=== PATIENT | female | born 1955 | race Hispanic/Latino ===

== ENCOUNTER 2017-04-07 12:43 | Outpatient (CLI) | payer OTHER ==
[2017-04-07 14:09] LABS: Blood Urea Nitrogen 20 mg/dL (7-17)
[2017-04-07] MEDS ORDERED: NACL ONE (14:36)
--- NOTE | 2017-04-07 15:16 | Cat Scan Report ---
CTA CHEST INDICATION: Shortness of breath. COMPARISON: None similar at this institution. FINDINGS: Chest CTA performed following intravenous administration of 100 cc of Omnipaque 350. Rotational MIP's also obtained. Normal heart size. No effusions. No aortic aneurysm, dissection or suspicious pulmonary arterial filling defects. Aortic and coronary atherosclerotic calcifications. No size significant adenopathy. Normal airway. Unremarkable thyroid. Clear lungs. Nonspecific distal esophageal wall prominence/thickening, not excluded for gastroesophageal reflux and/or hiatal hernia, amongst others. Images through included upper abdomen reveal no significant abnormality. Osteopenia and mild spinal degenerative changes. CONCLUSION: No CT evidence of pulmonary embolism with few other incidental findings, as above. Thank you for the opportunity to participate in this patient's care.
== END 2017-04-07 12:44 | disposition home or self-care (01) ==
LOC: CT 12:43
PROVIDERS: ATTEND Internal Medicine
DX: I25.10 Atherosclerotic heart disease of native coronary artery without angina pectoris (principal); I70.0 Atherosclerosis of aorta; M85.80 Other specified disorders of bone density and structure, unspecified site; M47.899 Other spondylosis, site unspecified
CPT/HCPCS: 36415; 71275; 82565; 84520; Q9967